=== PATIENT | female | born 1960 | race Caucasian/White ===

== ENCOUNTER 2017-04-04 08:23 | Emergency (ER) | payer OTHER ==
[2017-04-04 09:19] LABS: BASOPHIL 0.6 % (0-2); EOSINOPHIL 0 % (0-5); HCT 38.1 % (37.0-47.0); HGB 12.7 g/dl (12.5-16.0); LYMPHOCYTE 23.8 % (15-48); MCH 32.1 pg (25.0-31.0); MCHC 33.3 g/dL (32.0-36.0); MCV 96.2 fL (78.0-100.0); MONOCYTE 16.2 % (0-12); MPV 9.8 fL (6.0-9.5); NEUTROPHIL 59.4 % (41-80); PLT 210 K/uL (150-400); RBC 3.96 M/uL (4.20-5.40); RDW 15.1 % (11.5-14.0); WBC 5.3 K/uL (4.0-10.5)
[2017-04-04 09:24] LABS: BILIRUBIN NEGATIVE (NEGATIVE); BLOOD 2+ Ery/uL (NEGATIVE); CLARITY SLIGHTLY HAZY (CLEAR); COLOR YELLOW (YELLOW); GLUCOSE (U) NORMAL (NORMAL); KETONE (U) NEGATIVE (NEGATIVE); LEUKOCYTES 3+ Leu/uL (NEGATIVE); NITRITE NEGATIVE (NEGATIVE); PROTEIN NEGATIVE (NEGATIVE)
[2017-04-04 09:30] LABS: AMORPHOUS URATES CRYSTALS MODERATE; BACTERIA 2+; SQUAMOUS EPITHELIAL CELLS >50; URINARY WBC 20-50; YEAST PRESENT
[2017-04-04 09:36] LABS: ALBUMIN 3.3 g/dL (3.5-5.0); BILIRUBIN - TOTAL 1.1 mg/dL (0.1-1.0); CREATININE 0.8 mg/dL (0.5-1.0); GLOBULIN (CALCULATION) 3.7 g/dL (2.2-4.2); POTASSIUM 3.7 mmol/L (3.5-5.1)
[2017-04-04 09:38] LABS: LACTIC ACID 2.1 mmol/L (0.5-2.2)
== END 2017-04-04 10:43 | disposition home or self-care (01) ==
LOC: FER 08:23
PROVIDERS: Emergency Medicine
DX: J44.1 Chronic obstructive pulmonary disease with (acute) exacerbation (principal); B37.3 Candidiasis of vulva and vagina; N39.0 Urinary tract infection, site not specified; I10 Essential (primary) hypertension; F17.210 Nicotine dependence, cigarettes, uncomplicated; Z88.0 Allergy status to penicillin; Z88.1 Allergy status to other antibiotic agents; Z88.2 Allergy status to sulfonamides; Z88.6 Allergy status to analgesic agent; Z79.899 Other long term (current) drug therapy; Z79.51 Long term (current) use of inhaled steroids
CPT/HCPCS: 36415; 71020; 80053; 81001; 83605; 85025; 87040; 94640; J2930